=== PATIENT | male | born 1995 | race Caucasian/White ===

== ENCOUNTER 2016-10-14 22:17 | Emergency (ER) | payer OTHER ==
[2016-10-14 22:28] VITALS: BP 87/46; PULSE 46; RESP 14; TEMP 97.3; O2SAT 96
--- NOTE | 2016-10-14 22:35 | EDPHY ---
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 PHYSICAL EXAM (Prior to examination, patient consented to physical exam, hands were washed and my usual and customary physical exam procedures followed) 1) GENERAL: Well-developed, well-nourished, alert and oriented. Appears to be in no acute distress. 2) HEAD: Normocephalic 3) HEENT: sclera anicteric 4) LUNGS: Breathing comfortably. 5) SKIN: right index finger distal phalanx palmar aspect multiple lacerations 6) MUSCULOSKELETAL: full flexion extension without deficits at the MCP PIP D IP 7) NEUROLOGIC: Full sensation distally Constitutional: Initial Vital Signs Temperature (C) 36.3 C 10/14/16 22:21 Heart Rate 46 L 10/14/16 22:21 Respiratory Rate 14 10/14/16 22:21 Blood Pressure 87/46 L 10/14/16 22:21 O2 Sat (%) 96 10/14/16 22:21 O2 Delivery Mode Room Air Allergies/Adverse Reactions: amoxicillin Allergy (Verified 11/11/14 09:11) Rash seasonal Allergy (Uncoded 11/11/14 09:12) Home Medications: Medication Instructions Recorded Cephalexin [Keflex] 500 mg PO TID 5 Days 10/14/16 Rowasa 4 gm Enema (*) 10/14/16 MDM/Departure - MDM Procedures: Procedure: Laceration repair. I explained the indications, risks and benefits for both laceration repair and anesthetic administration. Verbal consent was obtained from the patient . The laceration on the finger was anesthetized using 0.5% bupivicaine without epinephrine digital nerve block. After anesthetic administered the patient was observed for a period of time and had no apparent adverse effects. The wound was cleaned, prepped, draped in normal sterile fashion and explored to its base. No foreign body seen, no foreign bodies palpated. There were no deep structures involved. Skin edges were reapproximated with 4,5-0 Prolene sutures . The wound repair was simple. The procedure was performed by myself. Patient has been informed that scarring will occur, although efforts have been made to minimize this. - Depart Disposition: Home, Routine, Self-Care Clinical Impression: Finger laceration Qualifiers: Encounter type: initial encounter Qualified Code(s): S61.219A - Laceration without foreign body of unspecified finger without damage to nail, initial encounter Condition: Good Instructions: Finger Laceration (ED) Prescriptions: Cephalexin [Keflex] 500 mg PO TID 5 Days Referrals: Oskar Bender MD [Medical Doctor] - 2-3 days, call for appt.
[2016-10-14] MEDS ORDERED: CEPHALEXIN 500MG PREPACK#4 BTL TAKEHOME ONE (23:04)
== END 2016-10-14 23:15 | disposition home or self-care (01) ==
PROC: 0HQFXZZ Repair Right Hand Skin, External Approach (ICD-10-PCS; principal; 2016-10-14)
DX: S61.210A Laceration without foreign body of right index finger without damage to nail, initial encounter (principal); W29.0XXA Contact with powered kitchen appliance, initial encounter

== ENCOUNTER 2017-08-25 22:17 | Emergency (ER) | payer OTHER ==
[2017-08-25 22:22] VITALS: BP 119/74; PULSE 46; RESP 18; TEMP 97.7; O2SAT 99
--- NOTE | 2017-08-25 22:31 | EDPHY ---
H & P Stated Complaint: R pointer finger lac Time Seen by Provider: 08/25/17 22:28 HPI/ROS: HPI: This is a 21-year-old male presents with Chief Complaint: Right index finger laceration Location: Tip of right index finger Quality: Laceration Duration: Prior to arrival Signs and Symptoms: + bleeding, no radiation, no numbness, no weakness, no tingling, no incontinence, no decreased range of motion, no swelling, + pain Timing: Acute Severity: Mild Context: Patient is left hand dominant, was cutting avocado using a kitchen knife, when he accidentally slipped and cut the tip of his right index finger. It started to bleed immediately. He applied direct pressure with kitchen rag and drove directly to the emergency room. Up-to-date on tetanus. Injured the same finger approximately 8 months ago when he accidentally got it caught in an immersion spray blender blade. He reports that he has decreased sensation at finger since the prior injury. Denies any decreased range of motion. Pain is only mild when he touches the area. Modifying Factors: Direct pressure with cessation of bleeding Comment: ROS: see HPI Constitutional: No fever, no chills, no weight loss Eyes: No blurred vision Respiratory: No shortness of breath, no cough Cardiovascular: No chest pain Gastrointestinal: No nausea, no vomiting no diarrhea Genitourinary: No dysuria Extremities: No myalgias Neurologic: No weakness, no numbness Skin: No rashes Hematologic: No bruising, no bleeding MEDICAL/SURGICAL/SOCIAL HISTORY: Medical history: Ulcerative colitis Surgical history: [place] teeth removal Social history: Student. CONSTITUTIONAL: Polite and cooperative adult white male, awake and alert, no obvious distress HEENT: Atraumatic and normocephalic, PERRL, EOMI. Tympanic membranes clear. Oropharynx clear, no exudate and moist pink mucosa. Airway patent. No lymphadenopathy. No meningismus. Cardiovascular: Normal S1/S2, regular rate, regular rhythm, without murmur rub or gallop. PULMONARY/CHEST: Symmetrical and nontender. Clear to auscultation bilaterally. Good air movement. No accessory muscle usage. ABDOMEN: Soft, nondistended, nontender, no rebound, no guarding, no peritoneal signs, no masses or organomegaly. No CVAT. 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 No nail involvement. DIP/PIP/MCP joints good flexion/extension/light touch sensation. no deformities, no clubbing, no cyanosis or edema. NEUROLOGICAL: no focal neuro deficits. GCS 15. SKIN: Warm and dry, no erythema. no rash. Good capillary refill. Source: Patient Exam Limitations: No limitations - Personal History Current Tetanus Diphtheria and Acellular Pertussis (TDAP): Yes - Medical/Surgical History Hx Asthma: No Hx Chronic Respiratory Disease: No Hx Diabetes: No Hx Cardiac Disease: No Hx Renal Disease: No Hx Cirrhosis: No Hx Alcoholism: No Hx HIV/AIDS: No Hx Splenectomy or Spleen Trauma: No Other PMH: wisdom teeth, ulcerative colitis - Social History Smoking Status: Never smoked Constitutional: Initial Vital Signs Temperature (C) 36.5 C 08/25/17 22:19 Heart Rate 46 L 08/25/17 22:19 Respiratory Rate 18 08/25/17 22:19 Blood Pressure 119/74 08/25/17 22:19 O2 Sat (%) 99 08/25/17 22:19 O2 Delivery Mode Room Air Allergies/Adverse Reactions: amoxicillin Allergy (Verified 08/25/17 22:19) Rash seasonal Allergy (Uncoded 08/25/17 22:19) Home Medications: Medication Instructions Recorded Cephalexin [Keflex] 500 mg PO TID 5 Days cap 10/14/16 Rowasa 4 gm Enema (*) 10/14/16 Medical Decision Making ED Course/Re-evaluation: Wound and laceration repair Tetanus up-to-date No signs of neurovascular compromise/tenting of skin/compartment syndrome/ extremities and joints examined above and below area of concern and are neurovascularly intact. Superficial skin avulsion; sutures not indicated Silver nitrate stick x1 used to achieve hemostasis. Bacitracin and then tube gauze applied. Wound care instructions provided. This patient was seen under the supervision of my secondary supervising physician. I evaluated care for this patient independently. Discussed this patient with Dr. Hsieh who did not see the patient. Differential Diagnosis: Differential diagnosis includes but is not limited to laceration, contusion, abrasion, nerve injury, tendon injury. Departure - Departure Disposition: Home, Routine, Self-Care Clinical Impression: Avulsion of skin of finger without complication Qualifiers: Encounter type: initial encounter Qualified Code(s): S61.209A - Unspecified open wound of unspecified finger without damage to nail, initial encounter Condition: Good Instructions: Skin Avulsion (ED) Additional Instructions: Keep the dressing dry and in place for 48 hours. After 48 hours, you may remove the dressing; wash the site daily with mild soap and water; then pat dry; apply topical antibiotic ointment and cover with clean sterile dressing until fully healed. Take Tylenol 650 mg every 4 hours and/or Ibuprofen 600 mg every 8 hours with food as needed for pain. Referrals: PODDAR,RAKESH [Other] - As per Instructions
== END 2017-08-25 22:54 | disposition home or self-care (01) ==
DX: S61.200A Unspecified open wound of right index finger without damage to nail, initial encounter (principal); W26.0XXA Contact with knife, initial encounter; Y93.89 Activity, other specified